=== PATIENT | female | born 1995 | race Asian ===

== ENCOUNTER 2020-04-12 12:30 | Emergency (ER) | payer OTHER ==
[~2020-04-12] VITALS: Ht 167.6 cm; Wt 60.8 kg
[2020-04-12 12:45] VITALS: Ht 167.6 cm; Wt 60.8 kg
[2020-04-12 13:26] LABS: BASOPHIL % 0.6 % (0-2); PLATELET COUNT 230 x10^3mcL (130-400); RED CELL DISTRIBUTION WIDTH 13.8 % (11.5-14.5)
[2020-04-12 14:19] LABS: UA SPECIFIC GRAVITY 1.015 (1.005-1.035); microscopic required? YES; urine erythrocyte 3+ (NEGATIVE)
[2020-04-12 15:52] VITALS: BP 121/74
== END 2020-04-12 15:52 | disposition home or self-care (01) ==
LOC: ED 12:30
PROVIDERS: Emergency Medicine
DX: O20.9 Hemorrhage in early pregnancy, unspecified (principal); Z3A.01 Less than 8 weeks gestation of pregnancy